=== PATIENT | male | born 1980 | race African-American/Black ===

== ENCOUNTER 2023-08-09 16:49 | Inpatient (IN) | payer MEDICARE, OTHER, SELFPAY ==
[2023-08-09] VITALS (12 sets, daily range): BP systolic 94–155; BP diastolic 64–124; BMI 23.9
[2023-08-09] MEDS: DILAUDID 1 MG IV ×2 (11:58→13:13)
[2023-08-09] MEDS: TORADOL 30 MG IV (11:58)
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
[2023-08-09 12:26] LABS: % Basophils 0.5 % (0-2); % Eosinophils 0.8 % (0-6); % Immature Granulocytes 0.5 % (0-0.5); % Lymphocytes 14.1 % (20.5-51.1); % Monocytes 6.1 % (1.7-9.3); Absolute Basophils 0.1 10^3/uL (0-0.2); Absolute Eosinophils 0.1 10^3/uL (0-0.7); Absolute Immature Granulocytes 0.1 10^3/uL (0-0.05); Absolute Lymphocytes 2.1 10^3/uL (1.2-3.4); Absolute Monocytes 0.9 10^3/uL (0.1-0.6); Absolute Neutrophils 11.8 10^3/uL (1.4-6.5); Hematocrit 39.1 % (39.0-52.0); Hemoglobin 12.3 g/dL (13.0-18.0); Mean Corp Hgb Conc. 31.5 g/dL (33.0-37.0); Mean Corpuscular Hgb 27.8 pg (27.0-31.0); Mean Corpuscular Volume 88.5 fL (80.0-94.0); Mean Platelet Volume 10.2 fL (7.4-10.4); Nucleated Red Blood Cells % 0 % (-); Platelet Count 563 10^3/uL (130-400); Red Blood Cell Count 4.42 10^6/uL (4.70-6.10); Red Cell Dist. Width 14.4 % (11.5-14.5); White Blood Cell Count 15.1 10^3/uL (4.8-10.8)
--- NOTE | 2023-08-09 12:29 | EDRN ---
the pts sister came out of the pts room and approached this RN at the nurses station and asked this RN where the microwave was so that she could heat up her breakfast, this RN escorted the pts sister to the microwave and the pts sister stated to
this RN on the way to the microwave that she wanted this RN to go into the pts room and explain to her sons how to work the remote, this RN entered the pts room and the pt stated to this RN, 'where is the TV remote how do i work it the kids want to
watch TV', this RN handed the pt the call horn that was lying on his lap and showed the pt how to bring up movies and television, the pt is resting in stretcher in the lowest position, side rails up x2, call horn within reach, HOB elevated, no s/s
of distress currently, the pt denies needing anything else at this time, will continue to monitor the pt closely
[2023-08-09 12:36] LABS: Lactic Acid 2.4 mmol/L (0.7-2.0)
[2023-08-09 12:39] LABS: ALT (SGPT) 15 U/L (0-50); AST (SGOT) 20 U/L (17-59); Albumin 4.7 g/dl (3.5-5.0); Alkaline Phosphatase 167 U/L (38-126); Blood Urea Nitrogen 13 mg/dl (9-20); Calcium 10.4 mg/dl (8.4-10.2); Carbon Dioxide 23 mmol/L (22-30); Chloride 103 mmol/L (98-107); Estimated Creatinine Clearance > 125 ml/min; Glucose 99 mg/dl (70-99); Potassium 4.2 mmol/L (3.5-5.1); Sodium 141 mmol/L (135-145); Total Bilirubin 0.3 mg/dl (0.2-1.3); Total Protein 7.8 g/dl (6.3-8.2); eGFR > 60.00
--- NOTE | 2023-08-09 12:49 | EDRN ---
the pts sister exited the pts room and approached the nurses station and stated to this RN, 'Someone was in the room to register my brother and they stated that his address was [facility] and it's not so i would like you to change that', this RN
took down the correct address which she states that the current address is [address] [place] [address] [place] [address], this RN notified registration and registration will change the pts address
--- NOTE | 2023-08-09 13:30 | EDRN ---
this RN noticed that the pt was not on the monitor, this RN entered the pts room and the pt was not hooked up to night monitor, BP cuff was on the ground and sp02 monitor was on the ground, this RN asked the pt what happened and the pt stated to
this RN, 'I don't want that stuff on, i want pain medication i am suffering here, i need pain medication and you aren't giving it to me, i haven't gotten any pain medication and i have asked for it multiple times', this RN tried to explain to the pt
that pain medication was administered to him, the pt stated, 'Well i should be getting dilaudid every hour, and every once in a while is not enough', this RN placed the pt back on the monitor and notified the pt that this RN would speak to the
provider, this RN spoke to Dr. Golden and Dr. Golden came to the pts bedside, Dr. Golden assessed the pts b/l buttock wounds and the pt expressed his concerns to Dr. Golden regarding pain medication, per Dr. Golden's orders a wound consult was placed, will
continue to monitor the pt closely
--- NOTE | 2023-08-09 13:50 | EDRN ---
this RN noticed that the pt was off the monitor again and this RN entered the pts room an the blood pressure cuff and Sp02 monitor was on the floor, the pt stated to this RN that he does not want to be on the monitor and that he doesn't need to be
on the monitor and to go get his pain medication, this RN notified Dr. Golden
[2023-08-09] MEDS: ATIVAN 1 MG IV (14:33)
[2023-08-09] MEDS: NSS 500 IV (14:33)
--- NOTE | 2023-08-09 14:40 | EDRN ---
the munitions factory worker stated to this RN that the pts sister Annemarie called, the call was transferred to this RN, this RN was unable to get to the phone in time, this RN attempted to call the pts sister back and there was no answer, shortly after
approximately 15 minutes later, the pts sister came back into the ER and approached this RN at the nurses station, the pts sister stated that the pt called her screaming stating that the staff is not taking good care of him and that the staff here
are ignoring the fact that he has pain and that he is not getting fair treatment, this RN attempted to explain to the pts sister that this RN and provider are doing all they can to make the pt comfortable, this RN entered the pts room with the pts
sister and the pt was resting in stretcher and appeared to be comfortable, the pt is in NSR in the 80's, VS WNL, no hypertension noted, the pt stated to this RN when this RN entered the room, 'I need pain medication i need to know when i am going to
get it next', the pt then began to hit the side rails with his left hand, this RN notified the pt that this RN will speak with Dr. Golden, per the provider, pain medication is not to be given again and per the provider Ativan IV was administered, the
pts sister left to go home and this RN assured the pts sister that this RN would make sure that the pt is comfortable, the pt is now sleeping in the stretcher in the lowest position, side rails up x2, call horn within reach, HOB elevated, no s/s of
distress, will continue to monitor the pt closely
--- NOTE | 2023-08-09 15:02 | EDRN ---
wound care nurse currently at the pts bedside
--- NOTE | 2023-08-09 15:18 | EDRN ---
wound care nurse came out of the pts room and gave this RN an update, the wound care nurse will place orders for the pts wounds
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
--- NOTE | 2023-08-09 16:03 | WOUNDNOTE ---
R HEEL CLOSER VIEW
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
--- NOTE | 2023-08-09 16:47 | WOUNDNOTE ---
PROMISE KEN NOTE: Unable to enter wound measurements in work list at this time will do tomorrow.
[2023-08-09] MEDS: ZOSYN 50 IV (17:22)
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
[2023-08-09] MEDS: VANCOCIN 200 IV (17:32)
[2023-08-09 17:49] LABS: Urine Albumin Negative (Neg - Trace); Urine Bilirubin Negative (Negative); Urine Character Clear (Clear); Urine Color Straw; Urine Glucose Negative (Negative); Urine Ketone Negative (Negative); Urine Leukocyte 2+ (Negative); Urine Nitrite Negative (Negative); Urine Occult Blood 1+ (Negative); Urine Specific Gravity 1.015 (<1.030); Urine Urobilinogen Negative (Neg - 1+)
--- NOTE | 2023-08-09 17:54 | EDRN ---
this RN entered the room to draw the pts lactic acid that was ordered by the provider, the pt threw his hands up and stated, 'I am not having blood drawn right now this is ridiculous, i need to rest, i refuse, i refuse', this RN attempted to educate
the pt about the importance of lab draws, the pt still refused, this RN notified the provider, will continue to monitor the pt closely
--- NOTE | 2023-08-09 17:57 | EDRN ---
this RN entered the pts room due to this RN noticing that the pt was not on the electronic device monitor, the pt stated, 'I ripped it off, i don't need it', this RN attempted to explain to the pt the importance of telemetry monitoring, the pt still refused
and stated, 'I don't need all of that stuff', this RN notified the admitting provider, no s/s of distress noted, the pt refused this RN to obtain vital signs again, no c/o chest pain, no c/o SOB, will continue to monitor the pt closely
[2023-08-09 18:28] LABS: Urine Bacteria Few (Negative); Urine White Cell 30-40 /HPF (0-5); Urine Yeast Moderate (Negative)
[2023-08-09] MEDS: LOVENOX 40 MG SC (20:15)
[2023-08-09] MEDS: OXYCONTIN (CONTROLLED RELEASE) 20 MG PO (20:15)
[2023-08-09] MEDS: DILAUDID 0.5 MG IV ×2 (20:16→23:29)
[2023-08-09] MEDS: NSS 1000 IV (20:17)
[2023-08-09 21:56] LABS: Lactic Acid 1.5 mmol/L (0.7-2.0)
--- NOTE | 2023-08-10 00:54 | PTCARENOTE ---
Pt uncooperative with care. Pt easily agitated and upset when attempting to provide care. Pt refusing to turn off of his bottom, which he is crying out in pain for, 'help me, help me, Im in pain'. Pt with significant B/L ischial wounds. ths RN
re-enforced the need to relieve the pressure to help wound heeling. When administering pain medication as ordered, pt insisted this RN administer and flush after instead of administering with IVF. Pt instructed on proper pain medication
administration per protocol. Pt upset, yelling at this RN stating the pain medication doesnt work for him if it isnt administered the way he likes it. this RN continued to administer pain medication per protocol. pt asking for a new RN. Pt called
sister yelling asking for a new nurse. Sister called nursing station asking to speak to cash applications manager. This RN spoke to sister in a very respectful manner. This RN explained what caused pt to get so upset. Sister understanding and respectful to this RN.
Sister apologizing on behalf of pt. Sister then called pt and told him he needed to cooperate. Pt asking for something to help calm him down. Sergio WALSH notified. orders obtained. See MAR. Will continue to monitor closely.
[2023-08-10] MEDS: ATIVAN 1 MG IV (01:13)
[2023-08-10] MEDS: NSS (PRESERVATIVE FREE) 0.5 ML IV (01:13)
[2023-08-10] MEDS: DILAUDID 0.5 MG IV ×6 (04:09→21:10)
[2023-08-10 04:10] VITALS: BP 130/79
[2023-08-10] MEDS: NSS 1000 IV ×2 (05:11→16:19)
--- NOTE | 2023-08-10 05:35 | PTCARENOTE ---
Pt continues to be uncooperative and difficult to manage. Pt refusing to be turned all night, now this am at 0515 demanding specialty air mattress Bed. Pt instructed air mattress is ordered and will be coming shortly. Pt yelling at this RN demanding
air mattress now. Softcare overlay mattress placed on bed. Pt finally agreeable to be turned with air pillow after much encouragment. pt demanding and only cooperative when pt gets what he wants when he wants it. Pt refusing heel boots that are
ordered 'they are the wrong ones' 'they are hard and for walking, not for when I am in bed' 'I need the soft ones'. Pt instructed WOC RN would be managing all wound care and devices. Pt instructed to discuss all options with WOC RN. Heels elevated
on pillows. Will continue to monitor.
[2023-08-10 07:00] VITALS: BP 150/102
[2023-08-10 07:34] LABS: Hematocrit 31.2 % (39.0-52.0); Mean Corp Hgb Conc. 31.4 g/dL (33.0-37.0); Mean Corpuscular Hgb 27.8 pg (27.0-31.0); Mean Corpuscular Volume 88.6 fL (80.0-94.0); Mean Platelet Volume 10.2 fL (7.4-10.4); Platelet Count 338 10^3/uL (130-400); Red Blood Cell Count 3.52 10^6/uL (4.70-6.10); Red Cell Dist. Width 14.6 % (11.5-14.5); White Blood Cell Count 8.5 10^3/uL (4.8-10.8)
[2023-08-10] MEDS: OXYCONTIN (CONTROLLED RELEASE) 20 MG PO ×2 (07:48→20:01)
[2023-08-10] MEDS: MIRALAX 17 GRAMS PO (07:48)
[2023-08-10] MEDS: SENOKOT-S 2 TABLET PO (07:48)
[2023-08-10 07:50] LABS: Blood Urea Nitrogen 12 mg/dl (9-20); Calcium 9.2 mg/dl (8.4-10.2); Carbon Dioxide 24 mmol/L (22-30); Chloride 109 mmol/L (98-107); Estimated Creatinine Clearance > 125 ml/min; Glucose 114 mg/dl (70-99); Magnesium 1.9 mg/dl (1.6-2.3); Potassium 3.9 mmol/L (3.5-5.1); Sodium 141 mmol/L (135-145); eGFR > 60.00
[2023-08-10 07:52] LABS: Hemoglobin 9.8 g/dL (13.0-18.0)
--- NOTE | 2023-08-10 09:45 | WOUNDNOTE ---
PROMISE RN NOTE: Updated wound care orders, placed Ricki's order and notified nurse Will who will do dressing change later today. Patient is on an air overlay and stated to me that he can't turn because it hurts too much. Called Ronnie for versa care air
bed and brought to , nurse will switch over to air mattress. Pressure ulcer prevention measures enforced with patient who has been refusing to turn. Called [facility] for ostomy supplies, patient or nursing can change q 3-4 days. Also called [facility] for
Tru[employer]ue lite offloading heel boots and applied. Updated orders work list and discharge instructions. Recommend patient follow with wound center post discharge.
[2023-08-10 11:28] VITALS: BP 150/90
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
[2023-08-10] MEDS: DAKIN'S SOLUTION 0.125% 1/4 STRENGTH 473 ML TOPICAL (13:59)
[2023-08-10] MEDS: NICODERM TRANSDERMAL 7 MG TRANSDERM (14:02)
[2023-08-10 15:27] VITALS: BP 141/79
--- NOTE | 2023-08-10 15:28 | W.PN.UPDATE ---
Update Note
Progress Note Update
Attempted to see pt, he is [id number] to turn to allow a wound eval due to his pain.
Will coordinate with wound care team to eval tomorrow together with premedication.
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
[2023-08-10 16:08] VITALS: BMI 23.9
--- NOTE | 2023-08-10 16:11 | CM ---
senior portfolio manager reviewed patient's chart and patient is no longer at [facility], per patient and sister, Adelitaece [phone] patient lives at home with family and has caregivers through the [employer] [facility]. Patient also has visiting
nurses with [facility] [phone], . Patient was recently admitted to [facility], and was sent home. Per sister Rayniece patient has a hospital bed at home along with w/c, per sister patient does not have a
cushion for his w/c.
Pharmacy: [facility]
Plan; Home with family private caregivers and homecare with [facility].
[facility]
[phone]
[2023-08-10] MEDS: HYDROPHOR 1 APPLIC TOPICAL (16:17)
[2023-08-10] MEDS: LOVENOX SC ×2 (17:35→17:42)
[2023-08-10 19:15] VITALS: BP 123/86
[2023-08-10] MEDS: NORVASC 2.5 MG PO (21:11)
[2023-08-10 22:50] VITALS: BP 151/84
[2023-08-11] MEDS: DILAUDID 0.5 MG IV ×7 (01:11→23:36)
[2023-08-11 03:24] VITALS: BP 125/80
[2023-08-11] MEDS: NSS IV (04:03)
[2023-08-11 06:00] VITALS: BMI 17.6
[2023-08-11 07:49] VITALS: BP 130/89
[2023-08-11] MEDS: HYDROPHOR 1 APPLIC TOPICAL (08:34)
[2023-08-11] MEDS: MIRALAX PO (08:35)
[2023-08-11] MEDS: SENOKOT-S 2 TABLET PO (08:35)
[2023-08-11] MEDS: NICODERM TRANSDERMAL 7 MG TRANSDERM (08:36)
[2023-08-11] MEDS: OXYCONTIN (CONTROLLED RELEASE) 20 MG PO ×2 (08:36→19:30)
[2023-08-11] MEDS: DAKIN'S SOLUTION 0.125% 1/4 STRENGTH 1 ML TOPICAL (08:55)
--- NOTE | 2023-08-11 09:32 | PN.CDI ---
CDI
- -
CDI:
Physician Documentation Request
Admit Date: 08/09/23 16:49
Dear Doctor Brent,
Patient admitted with osteomyelitis.
Please review the following and provide your response in the progress notes.
Clinical Indicators:
Height: 5' 10'
Weight: 123 lb
BMI: 17.6
Please provide an associated diagnosis related to the abnormal BMI, such as:
Underweight
Cachectic
Anorexia
BMI is not significant
Other
BMI < or = to 19
Underweight
Weight Loss
Cachectic
Anorexia
Use of terms such as suspected, likely, concern for, or probable (associated with a specific diagnosis that is being evaluated, monitored, or treated as if it exists) are acceptable and can be coded in the inpatient setting, when documented at the
time of discharge.
Thank you,
Maria Del Rosario MCCABE,RN,CCDS
CDI Specialist
Available via [place] text
Please use your independent medical judgment in providing your response.
[2023-08-11 11:10] VITALS: BP 125/87
[2023-08-11 11:57] LABS: % Basophils 0.6 % (0-2); % Eosinophils 2.3 % (0-6); % Immature Granulocytes 0.3 % (0-0.5); % Lymphocytes 26.1 % (20.5-51.1); % Monocytes 6.2 % (1.7-9.3); % Neutrophils 64.5 % (42.2-75.2); Absolute Eosinophils 0.2 10^3/uL (0-0.7); Absolute Lymphocytes 1.7 10^3/uL (1.2-3.4); Absolute Monocytes 0.4 10^3/uL (0.1-0.6); Absolute Neutrophils 4.1 10^3/uL (1.4-6.5); Hematocrit 32.3 % (39.0-52.0); Hemoglobin 10.5 g/dL (13.0-18.0); Mean Corp Hgb Conc. 32.5 g/dL (33.0-37.0); Mean Corpuscular Volume 86.1 fL (80.0-94.0); Mean Platelet Volume 10.3 fL (7.4-10.4); Nucleated Red Blood Cells % 0 % (-); Platelet Count 418 10^3/uL (130-400); Red Blood Cell Count 3.75 10^6/uL (4.70-6.10); Red Cell Dist. Width 14.6 % (11.5-14.5); White Blood Cell Count 6.4 10^3/uL (4.8-10.8)
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
[2023-08-11 12:59] LABS: Blood Urea Nitrogen 10 mg/dl (9-20); Calcium 9.4 mg/dl (8.4-10.2); Carbon Dioxide 31 mmol/L (22-30); Chloride 103 mmol/L (98-107); Estimated Creatinine Clearance 123 ml/min; Glucose 108 mg/dl (70-99); Sodium 140 mmol/L (135-145); eGFR > 60.00
[2023-08-11 14:47] VITALS: BP 130/92
--- NOTE | 2023-08-11 15:51 | PTCARENOTE ---
Patient adamantly refused overlay on his bed. Said he was 'in too much pain' . Patient medicated and nurse attempted again to apply overlay to bed - pt would not allow. Will cont to attempt.
[2023-08-11] MEDS: LOVENOX 40 MG SC (15:59)
--- NOTE | 2023-08-11 16:16 | CM ---
call center operations manager reviewed patient's chart and met with patient and patient lives with his sister in [place], patient has ramp into home, has hospital bed and w/c. Patient has private caregivers family and visiting nurses in home.
Plan; Home with family and visiting nurses from [facility] [place].
[facility]
[phone]
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
[2023-08-11 19:41] VITALS: BP 138/85
[2023-08-11] MEDS: NORVASC 2.5 MG PO (21:47)
[2023-08-11 22:29] VITALS: BP 129/82
[2023-08-12 03:34] VITALS: BP 167/73
[2023-08-12] MEDS: DILAUDID 0.5 MG IV ×4 (03:54→14:32)
[2023-08-12 06:00] VITALS: BMI 17.3
[2023-08-12 07:20] VITALS: BP 123/84
[2023-08-12] MEDS: MIRALAX 17 GRAMS PO (08:11)
[2023-08-12] MEDS: SENOKOT-S 2 TABLET PO (08:11)
[2023-08-12] MEDS: HYDROPHOR 1 APPLIC TOPICAL (08:11)
[2023-08-12] MEDS: OXYCONTIN (CONTROLLED RELEASE) 20 MG PO (08:11)
[2023-08-12] MEDS: DAKIN'S SOLUTION 0.125% 1/4 STRENGTH 473 ML TOPICAL (08:16)
[2023-08-12 08:45] LABS: % Basophils 0.6 % (0-2); % Eosinophils 2.2 % (0-6); % Immature Granulocytes 0.2 % (0-0.5); % Lymphocytes 25.7 % (20.5-51.1); % Monocytes 6.7 % (1.7-9.3); % Neutrophils 64.6 % (42.2-75.2); Absolute Basophils 0.1 10^3/uL (0-0.2); Absolute Eosinophils 0.2 10^3/uL (0-0.7); Absolute Lymphocytes 2.1 10^3/uL (1.2-3.4); Absolute Monocytes 0.5 10^3/uL (0.1-0.6); Absolute Neutrophils 5.2 10^3/uL (1.4-6.5); Hematocrit 33.6 % (39.0-52.0); Mean Corp Hgb Conc. 32.7 g/dL (33.0-37.0); Mean Corpuscular Hgb 28.1 pg (27.0-31.0); Mean Corpuscular Volume 85.7 fL (80.0-94.0); Mean Platelet Volume 9.7 fL (7.4-10.4); Nucleated Red Blood Cells % 0 % (-); Platelet Count 435 10^3/uL (130-400); Red Blood Cell Count 3.92 10^6/uL (4.70-6.10); Red Cell Dist. Width 14.6 % (11.5-14.5)
[2023-08-12 08:52] LABS: Blood Urea Nitrogen 16 mg/dl (9-20); Calcium 9.5 mg/dl (8.4-10.2); Carbon Dioxide 31 mmol/L (22-30); Chloride 103 mmol/L (98-107); Estimated Creatinine Clearance 120 ml/min; Glucose 102 mg/dl (70-99); Potassium 4.1 mmol/L (3.5-5.1); Sodium 140 mmol/L (135-145); eGFR > 60.00
[2023-08-12] MEDS: NICODERM TRANSDERMAL 7 MG TRANSDERM (10:09)
[2023-08-12 11:00] VITALS: BP 134/83
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
--- NOTE | 2023-08-12 12:50 | CM ---
Addendum entered by Sadie Olmos 08/12/23 12:51:
Patient has been set up by ambulance, ambulance form completed.
Original Note:
Patient is for discharge to home today by ambulance and follow up with homecare patient also has [facility] in home.
[facility]
[phone]
== END 2023-08-12 15:01 | disposition home health service (06) | DRG 539 ==
LOC: 4 WEST ACU 16:49
PROVIDERS: Emergency Medicine; Physician Assistant Medical; ADMITTING PHYSICIAN Internal Medicine; ATTENDING PHYSICIAN Internal Medicine; CONSULT PHYSICIAN Student in an Organized Health Care Education/Training Program; CONSULT PHYSICIAN Surgery; EMERGENCY PHYSICIAN Emergency Medicine
DX: M86.9 Osteomyelitis, unspecified (principal); L89.314 Pressure ulcer of right buttock, stage 4; L89.324 Pressure ulcer of left buttock, stage 4; G82.20 Paraplegia, unspecified; Z68.1 Body mass index [BMI] 19.9 or less, adult; K59.03 Drug induced constipation; T40.0X5A Adverse effect of opium, initial encounter; I10 Essential (primary) hypertension; R63.6 Underweight
CPT/HCPCS: 72193; 80048; 80053; 81003; 81015; 83605; 83735; 85025; 85027; 87040; 87070; 87086; 87147; 87205; 93005; 96361; 96374; 96375; 99285; Q9967

== ENCOUNTER 2023-09-08 22:20 | Emergency (ER) | payer MEDICARE, OTHER, SELFPAY ==
[2023-09-08 22:25] VITALS: BP 166/103
[2023-09-08 23:15] VITALS: BP 175/102
[2023-09-09 00:05] VITALS: BP 132/93
[2023-09-09] MEDS: DILAUDID 0.5 MG IV (00:05)
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
[2023-09-09 00:29] LABS: % Basophils 0.3 % (0-2); % Eosinophils 0.4 % (0-6); % Immature Granulocytes 0.4 % (0-0.5); % Lymphocytes 5.7 % (20.5-51.1); % Monocytes 3.6 % (1.7-9.3); % Neutrophils 89.6 % (42.2-75.2); Absolute Eosinophils 0.1 10^3/uL (0-0.7); Absolute Immature Granulocytes 0.1 10^3/uL (0-0.05); Absolute Lymphocytes 0.8 10^3/uL (1.2-3.4); Absolute Monocytes 0.5 10^3/uL (0.1-0.6); Absolute Neutrophils 12.1 10^3/uL (1.4-6.5); Hematocrit 32.2 % (39.0-52.0); Hemoglobin 10.5 g/dL (13.0-18.0); Mean Corp Hgb Conc. 32.6 g/dL (33.0-37.0); Mean Corpuscular Hgb 27.9 pg (27.0-31.0); Mean Corpuscular Volume 85.4 fL (80.0-94.0); Nucleated Red Blood Cells % 0 % (-); Platelet Count 532 10^3/uL (130-400); Red Blood Cell Count 3.77 10^6/uL (4.70-6.10); Red Cell Dist. Width 14.2 % (11.5-14.5); White Blood Cell Count 13.5 10^3/uL (4.8-10.8)
[2023-09-09 00:49] LABS: ALT (SGPT) 13 U/L (0-50); AST (SGOT) 20 U/L (17-59); Albumin 3.9 g/dl (3.5-5.0); Alkaline Phosphatase 107 U/L (38-126); Blood Urea Nitrogen 13 mg/dl (9-20); Calcium 9.3 mg/dl (8.4-10.2); Carbon Dioxide 29 mmol/L (22-30); Chloride 101 mmol/L (98-107); Glucose 92 mg/dl (70-99); Potassium 3.6 mmol/L (3.5-5.1); Sodium 140 mmol/L (135-145); Total Bilirubin 0.6 mg/dl (0.2-1.3); Total Protein 6.7 g/dl (6.3-8.2); eGFR > 60.00
[2023-09-09 01:00] VITALS: BP 146/76
[2023-09-09] MEDS: DILAUDID 1 MG IV (01:02)
[2023-09-09 02:16] VITALS: BP 135/91
--- NOTE | 2023-09-09 02:21 | EDRN ---
pt mother approached registration desk upon discharge asking how she is supposed to get her son who is wheelchair home. pt arrived by private vehicle, (uber that is wheelchair accessible) and states that there are none at this time of the night.
mother informed that if we were to set up ambulance transport home for him they would have to pay out of pocket, even if insurance covers some of it. mother states that they do not have the money and will try and find an uber home.
--- NOTE | 2023-09-09 03:00 | EDRN ---
pt mother able to secure larger uber that is not wheelchair accessible. pt assisted into car with help of pt brother, 1 rn, and 1 tech
== END 2023-09-09 02:25 | disposition home or self-care (01) ==
LOC: EMR 22:20
PROVIDERS: Physician Assistant; EMERGENCY PHYSICIAN Emergency Medicine
DX: M79.605 Pain in left leg (principal); M79.604 Pain in right leg; M25.552 Pain in left hip; M25.551 Pain in right hip; R10.2 Pelvic and perineal pain; M86.68 Other chronic osteomyelitis, other site; G89.29 Other chronic pain; G82.20 Paraplegia, unspecified; L89.329 Pressure ulcer of left buttock, unspecified stage; L89.319 Pressure ulcer of right buttock, unspecified stage; Z79.891 Long term (current) use of opiate analgesic; Z87.891 Personal history of nicotine dependence; Z88.8 Allergy status to other drugs, medicaments and biological substances
CPT/HCPCS: 99284; 96374; 96376; 80053; 85025